=== PATIENT | male | born 1930 | race Hispanic/Latino ===

== ENCOUNTER 2018-06-29 16:40 | Emergency (ER) | payer MEDICARE ==
[2018-06-29] MEDS ORDERED: Acetaminophen 500 MG TAB ONE (16:54)
--- NOTE | 2018-06-29 18:25 | CT ---
BRAIN CT WITHOUT IV CONTRAST: 06/29/18 HISTORY: 87-year-old male with history of injury from trauma, fall, fell backwards hitting head. Minimal soft tissue swelling over the right occiput region. No associated skull fracture. There is st able atrophy and mild chronic white matter ischemic change. No mass or midline shift. No intra or ext ra-axial hemorrhage. IMPRESSION: Stable atrophy and chronic white matter ischemic changes. Minimal soft tissue swelling over the right occipital region. POS: [facility]
== END 2018-06-29 18:54 | disposition home or self-care (01) ==
LOC: ERS 16:40
DX: S09.90XA Unspecified injury of head, initial encounter (principal); E78.5 Hyperlipidemia, unspecified; I11.0 Hypertensive heart disease with heart failure; I50.9 Heart failure, unspecified; Z79.899 Other long term (current) drug therapy; W01.10XA Fall on same level from slipping, tripping and stumbling with subsequent striking against unspecified object, initial encounter
CPT/HCPCS: 70450

== ENCOUNTER 2018-08-30 09:28 | Outpatient (CLI) | payer MEDICARE ==
--- NOTE | 2018-08-30 11:09 | RAD ---
LUMBAR SPINE SERIES TWO TO THREE VIEWS: INDICATIONS: Back pain with radiation. History of prior fall. FINDINGS: There is moderate multilevel degenerative change at the imaged lower thoracic and lumbar spine. Ther e is no acute compression fracture or significant subluxation. Multilevel facet degenerative hypertr ophy with sclerosis is present, compatible with multilevel facet osteoarthritis. There is prominent atherosclerosis of the aorta and visualized iliac arteries with associated ectasia. There is a perip herally calcified, rounded density of the left lower quadrant, projecting posteriorly on the lateral projection, not further localized on the basis of this exam. IMPRESSION: 1. Moderate multilevel degenerative change of the lumbar spine without acute compression fracture or subluxation identified. 2. Prominent atherosclerosis. POS: [facility]
== END 2018-08-30 09:29 | disposition home or self-care (01) ==
LOC: BICRAD 09:28
PROVIDERS: ATTEND Internal Medicine
DX: M54.9 Dorsalgia, unspecified (principal); M47.816 Spondylosis without myelopathy or radiculopathy, lumbar region; I70.0 Atherosclerosis of aorta; I77.819 Aortic ectasia, unspecified site
CPT/HCPCS: 72100

== ENCOUNTER 2018-09-11 09:29 | Observation (INO) | payer MEDICARE ==
[2018-09-11 10:21] LABS: #Monocytes 0.6 thou/uL (0.11-0.59); %Basophils 0.5 % (0.0-1.0); %Neutrophils 86.8 % (42.0-75.0); RBC Distribution Width 12.8 % (11.5-14.5)
[2018-09-11 10:29] LABS: #Lymphocytes 0.5 thou/uL (1.20-3.40); #Neutrophils 7.9 thou/uL (1.40-6.50); %Eosinophils 0.3 % (0.0-10.0); %Lymphocytes 5.3 % (21.0-51.0); %Monocytes 7.1 % (0.0-10.0); Hemoglobin 13.3 g/dL (14.0-18.0); Mean Corpuscular HGB CONC 33.1 g/dL (32.0-36.0); Mean Corpuscular Hemoglobin 32.2 pg (27.0-31.0); Mean Corpuscular Volume 97.3 fL (78.0-98.0); Mean Platelet Volume 6.7 fL (7.4-10.4); Platelet Count 238 thou/uL (130-400); Red Blood Cell (RBC) Count 4.12 mill/uL (4.70-6.10); White Blood Cell (WBC) Count 9.1 thou/uL (4.8-10.8)
[2018-09-11 10:46] LABS: ALT (SGPT) 11 U/L (8-55); AST (SGOT) 17 U/L (5-34); Albumin 3.8 g/dL (3.4-4.8); Alkaline Phosphatase 80 U/L (40-150); Anion Gap 14 mmol/L (10-20); BUN (Urea Nitrogen) 42 mg/dL (8.4-25.7); Bilirubin, Total 1.7 mg/dL (0.2-1.2); CK (CPK) 119 U/L (30-200); Calc. Creatinine Clearance 0 mL/min (70-130); Calcium 10.3 mg/dL (7.8-10.44); Carbon Dioxide 23 mmol/L (23-31); Chloride 97 mmol/L (98-107); Estimated GFR-MDRD 43; Globulin 3.5 g/dL (2.4-3.5); Glucose 92 mg/dL (83-110); Potassium 4.5 mmol/L (3.5-5.1); Protein, Total 7.3 g/dL (5.8-8.1); Sodium 129 mmol/L (136-145)
[2018-09-11 10:54] LABS: Bilirubin Negative (Negative); Blood, Urine Negative (Negative); Clarity CLEAR (Clear); Glucose, Urine (Dipstick) Negative (Negative); Leukocyte Negative (Negative); Nitrite Negative (Negative); Protein, Urine (Dipstick) Negative (Neg-Trace)
--- NOTE | 2018-09-11 10:56 | CT ---
CT LUMBAR SPINE: Date: 09/11/18 Multiple axial tomograms obtained through the lumbar spine with multiplanar reconstruction. INDICATION: Lumbar pain. FINDINGS: The lumbar vertebra maintain normal height and alignment. Moderate degenerative changes are noted wit h hypertrophic osteophytes from the lumbar vertebra. No evidence of spondylolisthesis or spondylolysi s. At T12-L1, mild diffuse disc bulge is seen. Facet hypertrophy. Mild central canal stenosis. At L1-2, broad based disc bulge combined with facet hypertrophy results in mild central canal stenosi s. At L2-3, broad based disc bulge. Facet and ligamentous hypertrophy is more prominent. Moderate to sev ere central canal stenosis. At L3-4, prominent broad based disc bulge. Severe facet and ligamentous hypertrophy. Severe central c anal stenosis. At L4-5, broad based disc bulge with posterior disc calcification. Prominent facet and ligamentous hy pertrophy. Severe central canal stenosis. Bilateral foraminal stenosis. At L5-S1, broad based bulge and prominent facet hypertrophy. Moderate central canal stenosis and bila teral foraminal stenosis. CT of thoracic spine questioned abnormality involving the superior end plate of L1. This is not as pr ominent on current study. See CT thoracic spine exam. IMPRESSION: 1. Moderate degenerative changes of the lumbar spine. Diffuse disc bulge at multiple levels with sev ere central canal stenosis noted at L3-4 and L4-5 as described above. 2. The superior end plate abnormality noted involving L1 on the CT thoracic spine is not as apparent on this lumbar spine exam. 3. There is evidence of aneurysmal dilatation of the abdominal aorta, which is incompletely evaluate d. Recommend further evaluation with abdominal aortic ultrasound or CT. POS: [facility]
--- NOTE | 2018-09-11 10:59 | CT ---
THORACIC SPINE CT NONCONTRST: CLINICAL HISTORY: Pain. FINDINGS: There is prominent multilevel degenerative change throughout the thoracic spine with bridging multile johanne anterior osteophytosis. There is generalized decreased density of the osseous structures indicat ing demineralization, with multifocal non-specific areas of osseous lucency. No compression fracture or subluxation. No significant retropulsion of bone into the vertebral canal. There is thoracic ky phosis apex at the mid thoracic level. Incidental note of scattered vascular disease. Stable calcification of left renal vasculature. There is subtle effacement involving cortex of the superior end plate of the L1 segment, incidentally noted. IMPRESSION: 1. No acute thoracic spine fracture or subluxation. 2. Incidental note of subtle cortical effacement of the superior aspect of L1. This is concerning f or a lytic lesion. Given the generalized osteopenia/demineralization, the possibility of a marrow in filtrative and/or osseous metastatic process is the diagnosis of exclusion. Recommend followup with MRI of the thoracic and lumbar spine for further evaluation. CODE T POS: [facility]
[2018-09-11] MEDS ORDERED: Morphine 4 MG/ML VIAL ONE (11:00)
[2018-09-11] MEDS ORDERED: Acetaminophen 325 MG TAB PO PRN (17:16)
[2018-09-11] MEDS ORDERED: Ondansetron ODT 4 MG TAB SL PRN (17:16)
[2018-09-11] MEDS ORDERED: Ondansetron PF 4 MG/2 ML Vial IVP PRN (17:16)
[2018-09-11] MEDS ORDERED: Sodium Chloride 0.9% 1,000 ML IV SCH (17:16)
[2018-09-11] MEDS ORDERED: HYDROcodone/Acetaminophen 5/325 mg Tablet PO PRN ×2 (17:16)
[2018-09-11 18:43] VITALS: BMI 28.8
[2018-09-11] MEDS ORDERED: Prevnar 13-Val Conj/PF 0.5 ML SYRINGE IM ONE (21:00)
[2018-09-11] MEDS ORDERED: Ketorolac Tromethamine 30 MG/ML VIAL IVP PRN (22:53)
--- NOTE | 2018-09-11 22:58 | HP ---
CHIEF COMPLAINT: Severe back pain. HISTORY OF PRESENT ILLNESS: Mr. Alcantara is an 88-year-old male with past medical history of hypertension, severe DJD of the knees, came with back pain started 2 to 3 months ago and got worse now to a point where he is unable to ambulate. Pain is getting worse. The patient takes tramadol for pain. According to web graphic designer, the patient is unable to stand or walk now since yesterday. The patient lives alone. He did not fall. There are no injury. He did not have any surgery before. The patient was brought to the ER, found to have hyponatremia and acute kidney injury, started on IV fluids and given morphine dose. CT scan of the lumbar spine showed spinal stenosis. The patient is admitted for management of pain and further evaluation. PAST MEDICAL HISTORY: 1. Hypertension. 2. Hyperlipidemia. 3. 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 PAST SURGICAL HISTORY: Nothing significant. CURRENT MEDICATIONS: The patient is on; 1. Lipitor 10 mg daily. 2. Lisinopril with hydrochlorothiazide 20/12.5 daily. 3. Lasix 20 mg daily. ALLERGIES: NKDA. FAMILY HISTORY: Not contributory. SOCIAL HISTORY: The patient lives alone. No history of smoking. No history of alcohol intake. REVIEW OF SYSTEMS: CARDIOVASCULAR: No chest pain. No shortness of breath. RESPIRATORY: No fever or cough. GASTROINTESTINAL: No nausea, vomiting, or abdominal pain. CENTRAL NERVOUS SYSTEM: No headache. No dizziness. PHYSICAL EXAMINATION: GENERAL: The patient is alert, awake, and oriented x3. VITAL SIGNS: Temperature 98, pulse 74, respiration 20, and blood pressure 180/70. HEENT: Normocephalic and atraumatic. Pupils are equal, round, and reactive. Nasopharynx is pale and dry. Hard and soft palate, no lesions. SKIN: Turgor decreased. NECK: Supple. No JVD. LUNGS: Bilateral air entry. No rales, no rhonchi. HEART: S1 and S2, regular. ABDOMEN: Soft. No distention. No tenderness. Normal bowel sounds. RECTAL: No symptoms. CENTRAL NERVOUS SYSTEM: No focal deficits. BACK: Tender in the lumbar spine area. Straight leg raising test positive on the left. LABORATORY DATA: CBC shows WBC 9, hemoglobin 13, hematocrit 40, and platelets 238. Metabolic panel; sodium 129, potassium 4.7, chloride 97, CO2 of 23, BUN 42, creatinine 1.5, and glucose 92. Urinalysis is negative. CT scan of the thoracic and lumbar spine done revealed severe degenerative joint disease and lumbar spinal stenosis and possible abdominal aortic aneurysm. ASSESSMENT: 1. Severe intractable back pain, spinal stenosis of lumbar spine. 2. Degenerative joint disease. 3. Hypertension, uncontrolled. 4. Hyponatremia. 5. Acute kidney injury. PLAN: 1. Vital signs q.4 hours. 2. Activity as tolerated. 3. Allergies, NKDA. 4. Diet regular. 5. IV fluids, normal saline 100 mL/h. 6. Toradol 30 mg IVP q.6 hours p.r.n. 7. Tramadol 100 mg q.i.d. p.r.n. 8. Continue home medications except Lasix. We will get a Neurosurgery consult. 9. We will obtain abdominal aortic ultrasound. Job ID: [id number]
--- NOTE | 2018-09-12 09:32 | ULT ---
ULTRASOUND RETROPERITONEUM LIMTED: (ABDOMINAL AORTA) DATE: 09-12-18 HISTORY: 88-year-old male with dilated abdominal aorta found on lumbar spine CT, incompletely imaged at that t kay. FINDINGS: There is extensive atherosclerotic calcification, irregularity, ectasia, and tortuosity of the abdomi nal aorta. Certain portions are obscured by shadowing from bowel gas. The proximal abdominal aorta is entirely obscured by the shadowing. The outer to outer diameter of the abdominal aorta reaches up to 3 cm at mid portion. The distal abdominal aorta has a caliber up to 2.5 cm. IMPRESSION: 1. Atherosclerosis, ectasia, and tortuosity of abdominal aorta. 2. The proximal portion is completely obscured by shadowing from bowel gas. 3. Caliber of the mid abdominal aorta reaches 3 cm, the threshold for diagnosis of aneurysm for the a bdominal aorta. 4. A noncontrast CT would provide more objective and more consistent measurements for follow up. KALYANI Mijares POS: [facility]
[2018-09-12 09:47] LABS: Anion Gap 18 mmol/L (10-20); BUN (Urea Nitrogen) 33 mg/dL (8.4-25.7); Calc. Creatinine Clearance 46 mL/min (70-130); Calcium 10.1 mg/dL (7.8-10.44); Carbon Dioxide 21 mmol/L (23-31); Chloride 101 mmol/L (98-107); Estimated GFR-MDRD 54; Glucose 81 mg/dL (83-110); Potassium 4.5 mmol/L (3.5-5.1); Sodium 135 mmol/L (136-145)
[2018-09-12] MEDS ORDERED: Lisinopril 20 MG TAB PO SCH (10:30)
[2018-09-12] MEDS ORDERED: Atorvastatin Calcium 10 MG TAB PO SCH (10:30)
[2018-09-12] MEDS: traMADol HCl 50 MG TAB PO PRN ×2 (11:07→20:53)
[2018-09-12] MEDS: Sodium Chloride 0.9% 1,000 ML IV SCH ×3 (11:08→19:01)
[2018-09-12] MEDS ORDERED: Lorazepam 2 MG/ML VIAL SLOW IVP SCH (17:45)
[2018-09-13] MEDS: Sodium Chloride 0.9% 1,000 ML IV SCH ×3 (06:31→20:24)
[2018-09-13] MEDS: Lisinopril/Hydrochlorothiazide 20 mg/12.5 mg Tablet PO SCH (09:35)
[2018-09-13] MEDS: Atorvastatin Calcium 10 MG TAB PO SCH (09:35)
[2018-09-13] MEDS: traMADol HCl 50 MG TAB PO PRN (09:35)
--- NOTE | 2018-09-13 15:55 | MRI ---
MRI LUMBAR SPINE WITHOUT CONTRAST: 09/13/2018 HISTORY: Back pain. COMPARISON: None. TECHNIQUE: Multiplanar, multisequence MR imaging of the lumbar spine provided without contrast. FINDINGS: The sagittal STIR imaging demonstrates no focal area of osseous marrow edema. Mild anterolisthesis of L4 on L5 noted, measuring 4 mm. Assuming five lumbar type vertebral bodies, the conus medullaris terminates at the T12-L1 level. Persistent motion artifact limits detailed assessment, particularly the axial T1 and T2 weighted imag ing. T12-L1: Bilateral facet hypertrophy. Disk space narrowing and mild sick bulge. No significant cent ral canal or neural foraminal stenosis. L1-L2: Mild bilateral facet hypertrophy. Minimal disk bulge with no central canal stenosis or neura l foraminal stenosis. L2-L3: Disk space narrowing, disk desiccation, and disk bulge noted. There is a disk extrusion in t he right paracentral region with inferior migration. Inferiorly migrated disk extrusion measures at least 1.5 cm in craniocaudal dimension and 8 mm in transverse dimension. There is associated moderat e central canal stenosis with severe right lateral recess stenosis at the axial level of the L2-L3 in tervertebral disk, extending into the right lateral recess, posterior to the L3 vertebral body. Ther e is mild bilateral neural foraminal stenosis. L3-L4: Disk space narrowing, disk desiccation, and disk bulge present. Prominent bilateral facet hy pertrophy. Severe central canal stenosis. Moderate right and mild left neural foraminal stenosis. L4-L5: Disk space narrowing, disk desiccation, and disk bulge. Prominent bilateral facet hypertroph y. Moderate-severe central canal stenosis. Mild to moderate bilateral neural foraminal stenosis, le ft greater than right. L5-S1: Prominent bilateral facet hypertrophy. Disk space narrowing and disk desiccation noted with disk bulge and mild central canal stenosis. Vacuum disk present. Bilateral moderate to severe centr al canal stenosis noted. There is clumping of the nerve roots of the cauda equina at the axial level of the L5 vertebral body, and the thecal sac appears empty at the L5-S1 level, suggesting nonspecific arachnoiditis. Review of the retroperitoneal structures demonstrates probable cyst, upper pole, left kidney. Incompletely assessed aneurysmal dilatation of the abdominal aorta noted, measuring up to 3.3 cm. IMPRESSION: 1. Severe degenerative change at the lumbar spine. Findings include a large disk extrusion with inf erior migration, in the right paracentral region, at L2-L3, with associated severe right lateral rece ss stenosis. There is also significant multilevel central canal and neural foraminal stenosis at L3- L4, L4-L5, and L5-S1, as documented above. Of note, there is clumping of the nerve roots of the caud a equina, distally, suggesting nonspecific arachnoiditis. 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 CODE T POS: [facility]
--- NOTE | 2018-09-13 17:34 | CON ---
DATE OF CONSULTATION: NEUROSURGERY CONSULTATION: Mr. Alcantara is an 88-year-old gentleman who was admitted a couple of days ago for intractable back pain that has a chronic nature to it; however, the 24 hours immediately prior to admission had acutely worsened. He also had diffuse generalized weakness as well as later found to be acute kidney injury and severe hyponatremia. He was admitted and these things were corrected and he started to clinically improve except for his back pain. Neurosurgery was consulted for the purposive evaluation of this pain as well as after a CT scan was performed revealing possible severe central canal stenosis. Ultimately, an MRI was performed today that confirms this. He has almost diffusely narrowed canal in his lumbar spine starting around L2 down to S1 secondary to several large disk osteophyte complexes at L3-L4. He also has inferiorly migrated right eccentric disk herniation that compresses the thecal sac even further. When I see him at bedside today, he is resting and difficult to arouse as he required sedation for his MRI which was done roughly an hour or so prior to my arrival, so he is still under the effect of this. From Neurosurgery's perspective, however, this is something that will likely need surgery, but nothing that is acutely necessary while in-house in the hospital. It appears he has been accepted by inpatient rehab and would support the decision for him to go there. Speaking with the son at bedside. His plan is still once he was discharged from rehab, taken back home to [place] with him, and I have recommended neurosurgical followup in the [place] area to discuss options for correcting his spinal stenosis. There is at least from our perspective, no other neurosurgical reason to keep him in the hospital at this point. Job ID: [id number]
[2018-09-13] MEDS: Dextrose 5 %-0.45 % NaCl 1,000 ML IV SCH (20:28)
[2018-09-14] MEDS: Dextrose 5 %-0.45 % NaCl 1,000 ML IV SCH (05:32)
[2018-09-14 07:18] VITALS: TEMP 98.9
[2018-09-14] MEDS: Lisinopril/Hydrochlorothiazide 20 mg/12.5 mg Tablet PO SCH (09:12)
[2018-09-14] MEDS: Atorvastatin Calcium 10 MG TAB PO SCH (09:12)
[2018-09-14] MEDS ORDERED: HYDROcodone/Acetaminophen 5/325 mg Tablet PO PRN (10:25)
[2018-09-14 11:17] VITALS: BP 143/81
[2018-09-14] MEDS ORDERED: Ketorolac Tromethamine 30 MG/ML VIAL IVP PRN (12:47)
--- NOTE | 2018-09-15 13:24 | DIS ---
DATE OF ADMISSION: 09/11/2018 DATE OF DISCHARGE: 09/14/2018 ADMITTING DIAGNOSES: 1. Severe intractable back pain with spinal stenosis of lumbar spine, degenerative joint disease. 2. Hypertension, uncontrolled. 3. Hyponatremia. 4. Acute kidney injury. FINAL DIAGNOSES: 1. Severe intractable back pain, improving. 2. Severe central canal spinal stenosis. 3. Hypertension, uncontrolled, improved. 4. Encephalopathy, improved. 5. Acute kidney injury, improved. 6. Hyponatremia, improved. BRIEF SUMMARY OF HOSPITAL COURSE: Mr. Alcantara is an 88-year-old male admitted because of change in mental status as well as with a lot of severe back pain, intractable, failed outpatient medications. The patient was found to have hyponatremia on admission. His sodium was 129, but improved to 135 with IV fluids. He also had acute kidney injury. His BUN is 42, which improved to 33 and creatinine improved from 1.5 to 1.2. The patient had change in mental status in the hospital, but improved later, started on physical therapy. He is unable to ambulate secondary to pain. He was given initially Toradol, which he responded well and it was irrelated to the inpatient rehab. The patient also had an MRI done, which showed severe degenerative joint disease with spinal canal stenosis severe. The patient was seen by Neurosurgery, who suggested physical therapy now and possibly needing some surgery later on. They say to to continue inpatient rehab and the patient is still in and they can follow him up, but his son is planning to take him to [facility] from rehab, where he can have neurosurgical followup. So, the patient is being transferred to inpatient rehab. At the time of transfer, he was stable. His vital signs are stable. Lungs clear. Heart sounds normal. Abdomen is soft , nontender. Bowel sounds present. DISCHARGE MEDICATIONS: Include; 1. Protonix 40 mg daily. 2. Lisinopril/Hydrochlorothiazide 20/12.5 daily. 3. Atorvastatin 10 mg daily. 4. Toradol p.r.n. 5. Tramadol p.r.n. 6. Also on IV fluids. FOLLOWUP: The patient will be followed up in inpatient rehab. Job ID: [id number] MTDD
== END 2018-09-14 14:19 ==
LOC: ERS 09:29 → ERHOLD 12:20 → T4-B 16:55
PROVIDERS: ADMIT Internal Medicine; ATTEND Internal Medicine
DX: M47.816 Spondylosis without myelopathy or radiculopathy, lumbar region (principal); M51.26 Other intervertebral disc displacement, lumbar region; M48.061 Spinal stenosis, lumbar region without neurogenic claudication; R41.82 Altered mental status, unspecified; I10 Essential (primary) hypertension; E87.1 Hypo-osmolality and hyponatremia; N17.9 Acute kidney failure, unspecified; M17.0 Bilateral primary osteoarthritis of knee; E78.5 Hyperlipidemia, unspecified; I70.0 Atherosclerosis of aorta; I71.4 Abdominal aortic aneurysm, without rupture; Z79.899 Other long term (current) drug therapy
CPT/HCPCS: 72128; 72131; 72148; 76775; 80048; 80053; 81003; 82550; 85025; 87086; 96361 ×5; 96374; 96375; 97116 ×2; 97139; 97530 ×2; 99285; G0378 ×3; 36415; 90471; 90670; G0009; J1885; J2060; J2270